=== PATIENT | female | born 1980 | race Asian ===

== ENCOUNTER 2018-11-06 15:23 | Outpatient (CLI) | payer BC ==
--- NOTE | 2018-11-06 15:49 | RAD ---
LUMBAR SPINE 4 VIEWS: HISTORY: Back pain FINDINGS: No fracture or subluxation or bony destruction is seen. No change in alignment is noted on flexion or extension.
--- NOTE | 2018-11-06 15:50 | RAD ---
THORACIC SPINE 3 VIEWS: HISTORY: Back pain FINDINGS: No fracture, subluxation or bony destruction is seen.
== END 2018-11-06 15:24 | disposition home or self-care (01) ==
LOC: SCSRAD 15:23
PROVIDERS: ATTEND Chiropractor
DX: M54.5 Low back pain (principal); M54.6 Pain in thoracic spine; M46.07 Spinal enthesopathy, lumbosacral region; M25.60 Stiffness of unspecified joint, not elsewhere classified
CPT/HCPCS: 72072; 72110

== ENCOUNTER 2023-07-12 08:27 | Outpatient (CLI) | payer BC | END 2023-07-12 08:28 | disposition home or self-care (01) | LOC: SCSRAD 08:27 | PROVIDERS: ATTEND Chiropractor | DX: S13.4XXA Sprain of ligaments of cervical spine, initial encounter (principal) | CPT/HCPCS: 72040 ==